=== PATIENT | male | born 1965 | race Caucasian/White ===

== ENCOUNTER 2022-01-23 15:12 | Emergency (ER) | payer BC, OTHER ==
[2022-01-23] MEDS ORDERED: Ibuprofen 200 MG TAB ONE (16:09)
[2022-01-23] MEDS ORDERED: Ondansetron PF 4 MG/2 ML Vial ONE (16:09)
[2022-01-23] MEDS ORDERED: Acetaminophen 500 MG TAB ONE (16:10)
[2022-01-23 17:07] LABS: SARS-CoV-2 NAA Rapid Test DETECTED (NotDetected)
== END 2022-01-23 17:47 | disposition home or self-care (01) ==
LOC: CSHERS 15:12
DX: U07.1 COVID-19 (principal); E11.9 Type 2 diabetes mellitus without complications; E03.9 Hypothyroidism, unspecified
CPT/HCPCS: 96361; 96374; J2405